=== PATIENT | male | born 2000 | race Two or more races ===

== ENCOUNTER 2020-07-20 17:32 | Emergency (ER) | payer OTHER ==
[~2020-07-20] VITALS: Ht 175.3 cm; Wt 78.9 kg
[2020-07-20 17:35] VITALS: Ht 175.3 cm; Wt 78.9 kg
[2020-07-20 18:51] VITALS: BP 126/69
== END 2020-07-20 18:51 | disposition home or self-care (01) ==
LOC: ED 17:32
DX: S61.011A Laceration without foreign body of right thumb without damage to nail, initial encounter (principal); W45.8XXA Other foreign body or object entering through skin, initial encounter; Y93.89 Activity, other specified; Y92.89 Other specified places as the place of occurrence of the external cause; Y99.8 Other external cause status
CPT/HCPCS: J2001

== ENCOUNTER 2020-07-20 21:05 | Emergency (ER) | payer OTHER ==
[~2020-07-20] VITALS: Ht 175.3 cm; Wt 78.9 kg
[2020-07-20 21:21] VITALS: Ht 175.3 cm; Wt 78.9 kg
[2020-07-20 23:43] VITALS: BP 136/74
== END 2020-07-20 23:43 | disposition home or self-care (01) ==
LOC: ED 21:05
DX: S61.011A Laceration without foreign body of right thumb without damage to nail, initial encounter (principal); X58.XXXA Exposure to other specified factors, initial encounter; Y93.89 Activity, other specified; Y92.89 Other specified places as the place of occurrence of the external cause; Y99.8 Other external cause status
CPT/HCPCS: J2001

== ENCOUNTER 2020-07-23 17:39 | Emergency (ER) | payer OTHER ==
[~2020-07-23] VITALS: Ht 175.3 cm; Wt 79.8 kg
[2020-07-23 17:43] VITALS: Ht 175.3 cm; Wt 79.8 kg
[2020-07-23 18:45] VITALS: BP 125/53
== END 2020-07-23 18:45 | disposition home or self-care (01) ==
LOC: ED 17:39
DX: S61.411D Laceration without foreign body of right hand, subsequent encounter (principal); X58.XXXD Exposure to other specified factors, subsequent encounter